=== PATIENT | male | born 1980 | race Caucasian/White ===

== ENCOUNTER 2021-06-26 08:19 | Emergency (ER) | payer OTHER ==
[~2021-06-26] VITALS: Ht 185.4 cm; Wt 95.3 kg
[2021-06-26 08:29] VITALS: BP 126/66
--- NOTE | 2021-06-26 08:30 | NUR ---
BIB SELF C/O R EYE ITCHING, SWELLING, REDNESS X 4 DAYS. APPLIED ERYTHROMYCIN CREAM, BUT WORSENED PAIN. ADMITS TEARING AND SLIGHT BLURRY VISION IN R EYE. A&OX4. AMBULATORY. R EYE IS SWOLLEN AND RED.
--- NOTE | 2021-06-26 08:31 | NUR ---
DR SARMIENTO AT BEDSIDE
[2021-06-26] MEDS ORDERED: AMOX-430 PO (08:53)
--- NOTE | 2021-06-26 09:17 | NUR ---
Patient discharged to home in stable condition. Written and verbal after care instructions given. Patient verbalizes understanding of instruction.
== END 2021-06-26 09:18 | disposition home or self-care (01) ==
LOC: ER 08:19
DX: L03.213 Periorbital cellulitis (principal); G43.909 Migraine, unspecified, not intractable, without status migrainosus